=== PATIENT | male | born 1970 | race Caucasian/White ===

== ENCOUNTER 2019-09-29 12:31 | Emergency (ER) | payer BC ==
[2019-09-29 17:04] VITALS: TEMP 97.5
[2019-09-29 17:08] VITALS: BP 155/78; O2SAT 94
== END 2019-09-29 16:54 | disposition home or self-care (01) ==
LOC: ER 12:31
DX: R07.89 Other chest pain (principal); I10 Essential (primary) hypertension; E78.00 Pure hypercholesterolemia, unspecified; Z79.82 Long term (current) use of aspirin
CPT/HCPCS: 36415; 71045; 80048; 80076; 83735; 83880; 84484; 85025; 85610; 93005; 99285

== ENCOUNTER 2019-12-30 08:07 | Emergency (ER) | payer BC ==
[2019-12-30] MEDS ORDERED: NA CHLORIDE 0.9% 1,000 ML ONE (09:26)
[2019-12-30] MEDS ORDERED: ONDANSETRON 4 MG/2 ML VIAL ONE (09:26)
[2019-12-30] MEDS ORDERED: MORPHINE 4 MG/ML SYR ONE (09:26)
[2019-12-30 09:37] LABS: Absolute Lymphocytes (CBC) 1.6 K/uL (0.7-4.9); Basophils % 0.6 % (0-1.3); MPV 8.3 fL (7.6-11.3); RBC Red Blood Cell Count 5.64 M/uL (4.33-5.43)
[2019-12-30 09:46] LABS: Potassium 4.9 mmol/L (3.5-5.1)
--- NOTE | 2019-12-30 09:50 | RAD REPORT ---
EXAM DESCRIPTION: CT - Stone Protocol - 12/30/2019 9:34 am CLINICAL HISTORY: Abdominal pain. COMPARISON: None. TECHNIQUE: Computed axial tomography of the abdomen pelvis was obtained without oral or IV contrast. Lack of IV and oral contrast limits evaluation of solid organs, bowel, and vessels. Coronal reformat paras images were obtained and reviewed. All CT scans are performed using dose optimization technique as appropriate and may include automated exposure control or mA/KV adjustment according to patient size. FINDINGS: 5 millimeter calculus right kidney. Mild to moderate right hydronephrosis. 9 millimeter ca lculus mid right ureter Hounsfield unit 501 Left kidney grossly normal. . The liver, spleen, pancreas and adrenals appear grossly normal There is no evidence of diverticulitis. The appendix appears normal Small inguinal hernias contain fat Fluid is present within small bowel loops some of which are upper limits normal caliber. IMPRESSION: A 9 millimeter calculus mid right ureter resulting in mild to moderate right hydronephro sis
[2019-12-30] MEDS ORDERED: KETOROLAC 30 MG/ML INJ ONE (10:07)
[2019-12-30] MEDS ORDERED: TAMSULOSIN 0.4 MG SR CAP ONE (10:07)
[2019-12-30] MEDS ORDERED: Magnesium Sulfate 2gm IVPB 2 G/50 ML BAG IV ONE (10:07)
--- NOTE | 2019-12-30 10:52 | ER ---
Nurse's Notes [facility] Name: Sathish Lund Age: 48 yrs Sex: Male : 1970 Arrival Date: 12/30/2019 Time: 08:10 Bed 18 Private MD: Yuniel Etienne Diagnosis: Calculus of kidney and ureter Presentation: 12/29 08:24 Chief complaint: Patient states: RLQ pain that started this morning around 0300. Pt had dm5 a similar pain Friday afternoon that went away. Pain rated at 9/10. Coronavirus screen: Proceed with normal triage. Patient denies a cough. Patient denies shortness of breath or difficulty breathing. Patient denies measured and/or subjective temperature greater than 100.4F prior to today's visit. Patient denies travel on a cruise ship or to a country the [facility] currently lists as an affected area. Patient denies contact with known and/or suspected case of COVID-19. Ebola Screen: Patient negative for fever greater than or equal to 101.5 degrees Fahrenheit, and additional compatible Ebola Virus Disease symptoms Patient denies exposure to infectious person. Patient denies travel to an Ebola-affected area in the 21 days before illness onset. No symptoms or risks identified at this time. Initial Sepsis Screen: Does the patient meet any 2 criteria? RR > 20 per min. Does the patient have a suspected source of infection? Yes: Acute abdominal pain. Risk Assessment: Do you want to hurt yourself or someone else? Patient reports no desire to harm self or others. Onset of symptoms was December 30, 2019. 08:24 Method Of Arrival: Ambulatory dm5 08:24 Acuity: CHOLO 2 dm5 Historical: - Allergies: 08:26 No Known Allergies; dm5 - Home Meds: 08:26 Metoprolol Tartrate Oral [Active]; aspirin 81 mg Oral chew 1 tab once daily [Active]; dm5 Simvastatin Oral [Active]; Claritin 10 mg Oral tab 1 tab once daily [Active]; - PMHx: 08:26 High Cholesterol; Hypertension; dm5 - Immunization history:: Adult Immunizations up to date. - Social history:: Smoking status: Patient denies any tobacco usage or history of. Screenin:00 Abuse screen: Denies threats or abuse. Denies injuries from another. Nutritional ss screening: No deficits noted. Tuberculosis screening: Never had TB. Fall Risk None identified. Assessment: 09:45 General: Appears uncomfortable, Behavior is calm, cooperative, Denies fever, feeling ss ill, fatigue, chills. Pain: Complains of pain in R flank Pain radiates to right lower quadrant Quality of pain is described as aching, Pain began 1 day ago. Is continuous. Neuro: Level of Consciousness is awake, alert, obeys commands, Oriented to person, place, time, situation. Cardiovascular: Capillary refill < 3 seconds is brisk in bilateral fingers. GI: Bowel sounds present X 4 quads. Abd is soft and non tender X 4 quads. Reports intermittent nausea with pain. : Denies burning with urination, discharge, inability to void, urinary frequency. EENT: Nares are clear Oral mucosa is moist. Derm: Skin is intact, is healthy with good turgor, Skin is dry, Skin is pink, warm \T\ dry. normal. Musculoskeletal: Circulation, motion, and sensation intact. Range of motion: intact in all extremities, Swelling absent. 10:27 Reassessment: Patient appears in no apparent distress at this time. Patient and/or ss family updated on plan of care and expected duration. Pain level reassessed. Patient is alert, oriented x 3, equal unlabored respirations, skin warm/dry/pink. Patient states feeling better. Patient states symptoms have improved. Pain: Pain currently is 4 out of 10 on a pain scale. Neuro: Level of Consciousness is awake, alert, obeys commands, Oriented to person, place, time, situation. Respiratory: Respiratory effort is even, unlabored, Respiratory pattern is regular, symmetrical. GI: Patient currently denies nausea. 11:29 Reassessment: Patient appears in no apparent distress at this time. Patient and/or ss family updated on plan of care and expected duration. Pain level reassessed. Patient is alert, oriented x 3, equal unlabored respirations, skin warm/dry/pink. Patient states feeling better. Patient states symptoms have improved. Vital Signs: 08:24 BP 153 / 102; Pulse 69; Resp 22; Temp 97.8; Pulse Ox 99% ; Weight 58.97 kg (R); Height dm5 5 ft. 11 in. (180.34 cm); Pain 9/10; 10:25 BP 156 / 82; Pulse 74; Resp 16; Pulse Ox 98% on R/A; Pain 4/10; ss 08:24 Body Mass Index 18.13 (58.97 kg, 180.34 cm) dm5 ED Course: 08:10 Patient arrived in ED. mr 08:10 Yuniel Etienne is Private Physician. mr 08:25 Triage completed. dm5 08:27 Skyla Ta FNP-C is [facility]. kb 08:27 Augusto De La Garza MD is Attending Physician. kb 09:14 Inserted saline lock: 20 gauge in right antecubital area, using aseptic technique. ss Blood collected. 09:37 Kym Olivrea, ZAC is Primary Nurse. ss 10:00 Patient has correct armband on for positive identification. Bed in low position. Call ss light in reach. 10:51 Tahir Weber MD is Referral Physician. kb 11:28 No provider procedures requiring assistance completed. IV discontinued, intact, ss bleeding controlled, No redness/swelling at site. Pressure dressing applied. Administered Medications: 09:20 Drug: NS 0.9% 1000 ml Route: IV; Rate: 1000 ml; Site: right antecubital; ss 10:14 Follow up: IV Status: Completed infusion ss 09:22 Drug: Zofran (Ondansetron) 4 mg Route: IVP; Site: right antecubital; ss 10:15 Follow up: Response: No adverse reaction ss 09:22 Drug: morphine 4 mg Route: IVP; Site: right antecubital; ss 10:15 Follow up: Response: No adverse reaction; Pain is decreased ss 10:00 Drug: Flomax 0.4 mg Route: PO; ss 10:24 Follow up: Response: No adverse reaction ss 10:02 Drug: TORadol - Ketorolac 15 mg Route: IVP; Site: right antecubital; ss 10:24 Follow up: Response: No adverse reaction; Pain is decreased ss 10:10 Drug: Magnesium Sulfate 2 grams Route: IVPB; Infused Over: 2 hrs; Site: right ss antecubital; 11:15 Follow up: IV Status: Completed infusion; OK to infuse over 1 hour ss 11:22 Drug: fentaNYL (PF) 50 mcg Route: IVP; Site: right antecubital; ss 11:30 Follow up: Response: No adverse reaction; Pain is decreased; Medication administered at ss discharge. 11:22 Drug: Cipro 500 mg Route: PO; ss 11:30 Follow up: Response: No adverse reaction; Medication administered at discharge. Intake: Outcome: 10:51 Discharge ordered by . kenzie 11:28 Discharged to home ambulatory. ss 11:28 Condition: good 11:28 Discharge instructions given to patient, Instructed on discharge instructions, follow up and referral plans. medication usage, Demonstrated understanding of instructions, follow-up care, medications, Prescriptions given X x5 11:29 Patient left the ED. Signatures: Skyla Ta, SENIOR BI DEVELOPER-C SENIOR BI DEVELOPER-Rebekah Funes, RN RN dm5 Cherelle Milan mr Kym Olivera, RN RN ss
--- NOTE | 2019-12-30 10:52 | EDPHYS ---
Physician Documentation [facility] Name: Sathish Lund Age: 48 yrs Sex: Male : 1970 Arrival Date: 12/30/2019 Time: 08:10 Bed 18 Private MD: Yuniel Etienne ED Physician Augusto De La Garza HPI: 12/29 09:22 This 48 yrs old Male presents to ER via Ambulatory with complaints of kb Abdominal Pain, Nausea. 09:22 The patient presents with abdominal pain right lower quadrant. Onset: The kb symptoms/episode began/occurred this morning, at 03:30. The symptoms radiate to right groin. Associated signs and symptoms: Pertinent positives: nausea, testicular pain. The symptoms are described as constant. Modifying factors: The symptoms are alleviated by nothing, the symptoms are aggravated by nothing. Severity of pain: At its worst the pain was moderate in the emergency department the pain is unchanged. The patient has experienced a previous episode, approximately 5 days ago. The patient has not recently seen a physician. Pt reports RLQ pain that radiates to right testicle. States he had the pain for a short time on Friday and it went away until 0330 this morning. Historical: - Allergies: 08:26 No Known Allergies; dm5 - Home Meds: 08:26 Metoprolol Tartrate Oral [Active]; aspirin 81 mg Oral chew 1 tab once daily [Active]; dm5 Simvastatin Oral [Active]; Claritin 10 mg Oral tab 1 tab once daily [Active]; - PMHx: 08:26 High Cholesterol; Hypertension; dm5 - Immunization history:: Adult Immunizations up to date. - Social history:: Smoking status: Patient denies any tobacco usage or history of. ROS: 09:21 Constitutional: Negative for fever, chills, and weight loss, Neck: Negative for injury, kb pain, and swelling, Cardiovascular: Negative for chest pain, palpitations, and edema, Respiratory: Negative for shortness of breath, cough, wheezing, and pleuritic chest pain, Back: Negative for injury and pain, MS/Extremity: Negative for injury and deformity, Skin: Negative for injury, rash, and discoloration, Neuro: Negative for headache, weakness, numbness, tingling, and seizure. 09:21 Abdomen/GI: Positive for abdominal pain, nausea, Negative for vomiting, diarrhea. Exam: 09:21 Constitutional: This is a well developed, well nourished patient who is awake, alert, kb and in no acute distress. Head/Face: Normocephalic, atraumatic. Chest/axilla: Normal chest wall appearance and motion. Nontender with no deformity. No lesions are appreciated. Cardiovascular: Regular rate and rhythm with a normal S1 and S2. No gallops, murmurs, or rubs. Normal PMI, no JVD. No pulse deficits. Respiratory: Lungs have equal breath sounds bilaterally, clear to auscultation and percussion. No rales, rhonchi or wheezes noted. No increased work of breathing, no retractions or nasal flaring. Back: No spinal tenderness. No costovertebral tenderness. Full range of motion. Skin: Warm, dry with normal turgor. Normal color with no rashes, no lesions, and no evidence of cellulitis. MS/ Extremity: Pulses equal, no cyanosis. Neurovascular intact. Full, normal range of motion. Neuro: Awake and alert, GCS 15, oriented to person, place, time, and situation. Cranial nerves II-XII grossly intact. Motor strength 5/5 in all extremities. Sensory grossly intact. Cerebellar exam normal. Normal gait. 09:21 Abdomen/GI: Inspection: abdomen appears normal, Bowel sounds: normal, in all quadrants, Palpation: soft, in all quadrants, mild abdominal tenderness, in the right lower quadrant. Vital Signs: 08:24 BP 153 / 102; Pulse 69; Resp 22; Temp 97.8; Pulse Ox 99% ; Weight 58.97 kg (R); Height dm5 5 ft. 11 in. (180.34 cm); Pain 9/10; 10:25 BP 156 / 82; Pulse 74; Resp 16; Pulse Ox 98% on R/A; Pain 4/10; ss 08:24 Body Mass Index 18.13 (58.97 kg, 180.34 cm) dm5 MDM: 08:27 Patient medically screened. kb 09:21 Data reviewed: vital signs, nurses notes. Data interpreted: Pulse oximetry: on room air kb is 99 %. Interpretation: normal. 10:40 Counseling: I had a detailed discussion with the patient and/or guardian regarding: the kb historical points, exam findings, and any diagnostic results supporting the discharge/admit diagnosis, lab results, radiology results, the need for outpatient follow up, a urologist, to return to the emergency department if symptoms worsen or persist or if there are any questions or concerns that arise at home. ED course: Pain controlled. Pt in agreement with outpatient follow up with urology. Will return for worsening symptoms or any other concerns. . 10:51 Physician consultation: Alia Muñoz NP was contacted at 10:51, regarding consult, kb patient's condition, and will see patient in office. 12/29 08:35 Order name: CT Stone Protocol kb 12/29 09:37 Order name: CBC with Automated Diff; Complete Time: 09:45 EDMS 12/29 09:46 Order name: Basic Metabolic Panel; Complete Time: 09:47 EDMS 12/29 10:36 Order name: Urine Dipstick--Ancillary (enter results) eb 12/29 09:51 Order name: CT; Complete Time: 09:55 EDMS 12/29 08:35 Order name: IV Saline Lock; Complete Time: 09:14 kb 12/29 08:35 Order name: Labs collected and sent; Complete Time: 09:14 kb 12/29 09:48 Order name: Urine Dipstick-Ancillary (obtain specimen); Complete Time: 10:14 kb Administered Medications: 09:20 Drug: NS 0.9% 1000 ml Route: IV; Rate: 1000 ml; Site: right antecubital; ss 10:14 Follow up: IV Status: Completed infusion ss 09:22 Drug: Zofran (Ondansetron) 4 mg Route: IVP; Site: right antecubital; ss 10:15 Follow up: Response: No adverse reaction ss 09:22 Drug: morphine 4 mg Route: IVP; Site: right antecubital; ss 10:15 Follow up: Response: No adverse reaction; Pain is decreased ss 10:00 Drug: Flomax 0.4 mg Route: PO; ss 10:24 Follow up: Response: No adverse reaction ss 10:02 Drug: TORadol - Ketorolac 15 mg Route: IVP; Site: right antecubital; ss 10:24 Follow up: Response: No adverse reaction; Pain is decreased ss 10:10 Drug: Magnesium Sulfate 2 grams Route: IVPB; Infused Over: 2 hrs; Site: right ss antecubital; 11:15 Follow up: IV Status: Completed infusion; OK to infuse over 1 hour 11:22 Drug: fentaNYL (PF) 50 mcg Route: IVP; Site: right antecubital; 11:30 Follow up: Response: No adverse reaction; Pain is decreased; Medication administered at ss discharge. 11:22 Drug: Cipro 500 mg Route: PO; ss 11:30 Follow up: Response: No adverse reaction; Medication administered at discharge. Disposition: 12/30/19 10:51 Discharged to Home. Impression: Calculus of kidney and ureter. - Condition is Stable. - Discharge Instructions: Kidney Stones, [id number], Dietary Guidelines to Help Prevent Kidney Stones. - Prescriptions for Tylenol- Codeine #3 300-30 mg Oral Tablet - take 1 tablet by ORAL route every 6 hours As needed; 15 tablet. Zofran 4 mg Oral Tablet - take 1 tablet by ORAL route every 6 hours As needed; 20 tablet. Flomax 0.4 mg Oral Capsule, Sust. Release 24 hr - take 1 capsule by ORAL route once daily As needed 1/2 hour following the same meal each day; 10 capsule. Diclofenac Sodium 75 mg Oral Tablet, Delayed Release (E.C.) - take 1 tablet by ORAL route 2 times per day As needed; 30 tablet. Cipro 500 mg Oral Tablet - take 1 tablet by ORAL route every 12 hours for 10 days; 20 tablet. - Medication Reconciliation Form, Thank You Letter, Antibiotic Education, Prescription Opioid Use form. - Follow up: Tahir Weber; When: 2 - 3 days; Reason: Recheck today's complaints. Addendum: 01/03/2020 16:26 Co-signature as Attending Physician, Augusto De La Garza MD I agree with the assessment and k dr plan of care. Signatures: Dispatcher [employer] EDCA Skyla Ta, GERALDINE-Dominga CHANDLER-Rebekah Funes, RN RN dm5 Augusto De La Garza MD MD [facility] Kym Olivera RN RN ss Corrections: (The following items were deleted from the chart) 12/29 11:29 10:51 12/30/2019 10:51 Discharged to Home. Impression: Calculus of kidney and ureter. Condition is Stable. Discharge Instructions: Kidney Stones, [id number], Dietary Guidelines to Help Prevent Kidney Stones. Prescriptions for Tylenol-Codeine #3 300-30 mg Oral Tablet - take 1 tablet by ORAL route every 6 hours As needed; 15 tablet, Zofran 4 mg Oral Tablet - take 1 tablet by ORAL route every 6 hours As needed; 20 tablet, Flomax 0.4 mg Oral Capsule, Sust. Release 24 hr - take 1 capsule by ORAL route once daily As needed 1/2 hour following the same meal each day; 10 capsule, Diclofenac Sodium 75 mg Oral Tablet, Delayed Release (E.C.) - take 1 tablet by ORAL route 2 times per day As needed; 30 tablet. and Forms are Medication Reconciliation Form, Thank You Letter, Antibiotic Education, Prescription Opioid Use. Follow up: Tahir Weber; When: 2 - 3 days; Reason: Recheck today's complaints. kb
[2019-12-30] MEDS ORDERED: FENTANYL CITR 100 MCG/2 ML ONE (11:21)
[2019-12-30] MEDS ORDERED: CIPROFLOXACIN HCL 500 MG TAB ONE (11:21)
[2019-12-30 11:37] VITALS: TEMP 97.8
[2019-12-30 11:38] VITALS: BP 156/82; O2SAT 98
[2019-12-30 21:58] LABS: Urine Blood 3+ (NEG); Urine Glucose NEGATIVE (NEG); Urine Protein 1+ (NEG); Urine Specific Gravity 1.025 (1.005-1.030); Urine pH 6.5 (5.0-7.0)
== END 2019-12-30 11:29 | disposition home or self-care (01) ==
LOC: ER 08:07
DX: N20.2 Calculus of kidney with calculus of ureter (principal); I10 Essential (primary) hypertension; E78.00 Pure hypercholesterolemia, unspecified; Z79.82 Long term (current) use of aspirin
CPT/HCPCS: 96365; 96361; 85025; 80048; 36415; 81003; 76377; 74176; 96375; 99284; J3010; J3475; J7030; J2405